=== PATIENT | male | born 1985 | race Caucasian/White ===

== ENCOUNTER 2019-01-12 20:16 | Emergency (ER) | payer SELFPAY ==
--- NOTE | 2019-01-12 20:32 | EDM.PDOC ---
ED HPI GENERAL MEDICAL PROBLEM - General Chief Complaint: Lower Extremity Injury/Pain Stated Complaint: SOB Time Seen by Provider: 01/12/19 20:31 - History of Present Illness INITIAL COMMENTS - FREE TEXT/NARRATIVE: 33-year-old male presents emergency room with right foot pain and chest wall pain area patient drops off on his right foot therefore it hurts he cannot recall how he did it. The os is having some substernal chest pain. He is not sure how he did this either denies smoking drugs or alcohol this all occurred earlier today. Right Feet Pain Score (Numeric/FACES): 10 Chest Pain Score (Numeric/FACES): 8 - Related Data Allergies Allergy/AdvReac Type Severity Reaction Status Date / Time No Known Allergies Allergy Verified 11/08/13 13:08 Home Meds: Home Meds Hydrocodone/Acetaminophen [Hydrocodone-Acetaminophen 5-325] 1 - 2 each PO Q4HR PRN #10 tablet 11/08/13 [Rx] Past Medical History - Past Health History Medical/Surgical History: Denies Medical/Surgical History Review of Systems - Review of Systems Review Of Systems: See Below Constitutional: Reports: No Symptoms Eyes: Reports: No Symptoms Ears: Reports: No Symptoms Nose: Reports: No Symptoms Mouth/Throat: Reports: No Symptoms Respiratory: Reports: No Symptoms Cardiovascular: Reports: Chest Pain GI/Abdominal: Reports: No Symptoms Skin: Reports: No Symptoms Neurological: Reports: No Symptoms Psychiatric: Reports: No Symptoms ED EXAM, GENERAL - Physical Exam Exam: See Below Exam Limited By: No Limitations General Appearance: Alert, WD/WN, No Apparent Distress Respiratory/Chest: No Respiratory Distress, Lungs Clear, Normal Breath Sounds Cardiovascular: Regular Rate, Rhythm, No Murmur, Bradycardia GI/Abdominal: Normal Bowel Sounds, Soft, Non-Tender, Other (Zain over the stomach up towards the heart) Back Exam: Normal Inspection. No: CVA Tenderness (L), CVA Tenderness (R) Extremities: Normal Inspection, No Pedal Edema, Pedal Edema EKG INTERPRETATION Rhythm: NSR [place]: RAD-Right [place] Deviation QRS: RBBB ST-T: Normal EKG Interpretation Comments: Normal PVC right bundle branch block no obvious ischemia Course - Vital Signs Text/Narrative:: His chest wall pain does not appear to be dangerous. He's tender foot for a while after dropping weight on he can use Tylenol or Motrin on this so he can go back to work Last Recorded V/S: Last Vital Signs Temp 36.7 C 01/12/19 20:24 Pulse 96 01/12/19 20:24 Resp 18 01/12/19 20:24 BP 137/87 01/12/19 20:24 Pulse Ox 100 01/12/19 20:24 - Orders/Labs/Meds Orders: Active Orders 24 hr Category Date Time Status EKG Documentation Completion [RC] STAT Care 01/12/19 20:51 Active Chest 1V Frontal [CR] Stat Exams 01/12/19 20:50 Taken Foot Comp Min 3V Rt [CR] Stat Exams 01/12/19 20:49 Taken Labs: Laboratory Tests 01/12/19 01/12/19 Range/Units 21:03 21:03 WBC 12.91 H (4.23-9.07) K/mm3 RBC 5.59 (4.63-6.08) M/mm3 Hgb 16.2 (13.7-17.5) gm/dl Hct 49.5 (40.1-51.0) % MCV 88.6 (79.0-92.2) fl MCH 29.0 (25.7-32.2) pg MCHC 32.7 (32.2-35.5) g/dl RDW Std Deviation 43.4 (35.1-43.9) fL Plt Count 280 (163-337) K/mm3 MPV 9.5 (9.4-12.3) fl Neutrophils % (Manual) 91 H (40-60) % Band Neutrophils % 0 (0-10) % Lymphocytes % (Manual) 7 L (20-40) % Atypical Lymphs % 0 % Monocytes % (Manual) 2 (2-10) % Eosinophils % (Manual) 0 L (0.8-7.0) % Basophils % (Manual) 0 L (0.2-1.2) Platelet Estimate Adequate RBC Morph Comment Normal Sodium 136 (136-145) mEq/L Potassium 4.8 (3.5-5.1) mEq/L Chloride 104 (98-107) mEq/L Carbon Dioxide 28 (21-32) mEq/L Anion Gap 8.8 (5-15) BUN 12 (7-18) mg/dL Creatinine 1.2 (0.7-1.3) mg/dL Est Cr Clr Drug Dosing TNP Estimated GFR (MDRD) > 60 (>60) mL/min BUN/Creatinine Ratio 10.0 L (14-18) Glucose 100 (74-106) mg/dL Calcium 8.3 L (8.5-10.1) mg/dL Total Bilirubin 1.5 H (0.2-1.0) mg/dL AST 26 (15-37) U/L ALT 37 (16-63) U/L Alkaline Phosphatase 77 (46-116) U/L Troponin I < 0.017 (0.00-0.056) ng/mL Total Protein 6.8 (6.4-8.2) g/dl Albumin 3.6 (3.4-5.0) g/dl Globulin 3.2 gm/dL Albumin/Globulin Ratio 1.1 (1-2) - Re-Assessments/Exams Free Text/Narrative Re-Assessment/Exam: 01/12/19 22:44 Return evaluation is unrevealing chest x-ray shows no acute cardiopulmonary changes. She'll be discharged home is recommended use Tylenol or Motrin for pain control Departure - Departure Time of Disposition: 22:46 Disposition: Home, Self-Care 01 Clinical Impression: Contusion of right foot - Discharge Information Referrals: PCP,None [Primary Care Provider] - Alberto Granger MD [Emergency Provider] - Forms: ED Department Discharge Additional Instructions: Treatment emergency room with any questions problems worsening symptoms. Follow- up in the Hospital clinic for recheck in 3 or 4 days [id number]. Tylenol and/or Motrin as needed for pain this way you can continue to work. - My Orders Last 24 Hours: My Active Orders 01/12/19 20:49 Foot Comp Min 3V Rt [CR] Stat 01/12/19 20:50 Chest 1V Frontal [CR] Stat 01/12/19 20:51 EKG Documentation Completion [RC] STAT - Assessment/Plan Last 24 Hours: My Active Orders 01/12/19 20:49 Foot Comp Min 3V Rt [CR] Stat 01/12/19 20:50 Chest 1V Frontal [CR] Stat 01/12/19 20:51 EKG Documentation Completion [RC] STAT
--- NOTE | 2019-01-13 09:39 | CR ---
Right foot: Four views of the right foot were obtained. Comparison: No previous foot exam. Joint spaces are maintained. No fracture, dislocation or other bony abnormality is seen. Impression: 1. No abnormality is identified on four-view right foot exam. Diagnostic code #1
--- NOTE | 2019-01-13 09:39 | CR ---
Chest: Portable view of the chest was obtained. Comparison: No prior chest x-ray. Heart size and mediastinum are within normal limits for portable technique. Nodular opacity is seen within the left lung base believed to be due to confluence of lung markings. Lungs otherwise are clear. Bony structures are unremarkable. Impression: 1. Nothing acute is appreciated on portable chest x-ray. Diagnostic code #1
== END 2019-01-12 22:59 | disposition home or self-care (01) ==
LOC: JD.ED 20:16
DX: S90.31XA Contusion of right foot, initial encounter (principal); W22.8XXA Striking against or struck by other objects, initial encounter
CPT/HCPCS: 36415; 71045; 71045-26; 73630-26-RT; 73630-RT; 80053; 84484; 85007; 85027; 93005; 99285-25

== ENCOUNTER 2019-10-02 10:40 | Emergency (ER) | payer BC ==
--- NOTE | 2019-10-02 11:30 | EDM.PDOCBH ---
ED HPI GENERAL MEDICAL PROBLEM - General Chief Complaint: Behavioral/Psych Stated Complaint: ANXIETY Time Seen by Provider: 10/02/19 11:05 Source of Information: Reports: Patient History Limitations: Reports: No Limitations - History of Present Illness INITIAL COMMENTS - FREE TEXT/NARRATIVE: Patient is a 34-year-old male who presents to the emergency department with complaints of intermittent anxiety/panic attacks and the request for a note for him to return to work. He states that he has been off work since Saturday for what he describes as a "gallbladder attack ". Been told in the past that he needs to have his gallbladder out, however he has not done so thus far. Symptoms of this have resolved, however his employer would not allow him to return to work without a note. With regards to his anxiety. He was seen in the clinic in April given a prescription for citalopram and Xanax, however he never picked these medications up. He states that for a while the anxiety improved, however over the last few weeks it seems to be returning. He describes feeling anxious and "panicky "about twice a week. He has been on citalopram in the past, however it is been a while. He denies any thoughts of self-harm. - Related Data Allergies Allergy/AdvReac Type Severity Reaction Status Date / Time No Known Allergies Allergy Verified 08/24/19 22:35 Home Meds: Home Meds Citalopram Hydrobromide [Celexa] 10 mg PO DAILY #30 tablet 10/02/19 [Rx] Past Medical History - Past Health History Medical/Surgical History: Denies Medical/Surgical History Gastrointestinal History: Reports: Other (See Below) Other Gastrointestinal History: Pt states he has "gallbladder issues" Psychiatric History: Reports: Anxiety Social & Family History - Family History Family Medical History: Noncontributory - Tobacco Use Smoking Status *Q: Current Every Day Smoker Years of Tobacco use: 5 Packs/Tins Daily: 0.5 - Caffeine Use Caffeine Use: Reports: Soda, Tea - Recreational Drug Use Recreational Drug Use: No ED ROS GENERAL - Review of Systems Review Of Systems: See Below Constitutional: Reports: No Symptoms HEENT: Reports: No Symptoms Respiratory: Reports: No Symptoms Cardiovascular: Reports: No Symptoms Endocrine: Reports: No Symptoms GI/Abdominal: Reports: No Symptoms : Reports: No Symptoms Musculoskeletal: Reports: No Symptoms Skin: Reports: No Symptoms Neurological: Reports: No Symptoms Psychiatric: Reports: Anxiety Hematologic/Lymphatic: Reports: No Symptoms Immunologic: Reports: No Symptoms ED EXAM, BEHAVIORAL HEALTH - Physical Exam Exam: See Below Exam Limited By: No Limitations General Appearance: Alert, WD/WN, No Apparent Distress Respiratory/Chest: No Respiratory Distress, Lungs Clear, Normal Breath Sounds, No Accessory Muscle Use, Chest Non-Tender Cardiovascular: Normal Peripheral Pulses, Regular Rate, Rhythm, No Edema, No Gallop, No JVD, No Murmur, No Rub GI/Abdominal: Normal Bowel Sounds, Soft, Non-Tender, No Organomegaly, No Distention, No Abnormal Bruit, No Mass Neurological: Alert, Normal Mood/Affect, CN II-XII Intact, Normal Cognition, Normal Gait, Normal Reflexes, No Motor/Sensory Deficits, Oriented x 3 Psychiatric: Alert, Normal Affect, Normal Cognition, Normal Mood, Oriented Skin Exam: Warm, Dry, Intact, Normal color, No rash COURSE, BEHAVIORAL HEALTH COMP - Course Vital Signs: Last Vital Signs Temp 98.1 F 10/02/19 11:00 Pulse 87 10/02/19 11:00 Resp 20 10/02/19 11:00 BP 128/89 10/02/19 11:00 Pulse Ox 98 10/02/19 11:00 Re-Assessment/Re-Exam: Patient is a 34-year-old male who presents what he describes as intermittent anxiety attacks. He has been prescribed medications in the past, however he did not pick them up. Looking back in the history, he saw Queenie Ramirez in April. She prescribed him citalopram and Xanax. Patient states that his anxiety attacks are not as bad now as they were back in April. The decision was made to just start him on the daily dose of citalopram and have him follow- up in the clinic. He is in agreement with this plan. Discharge instructions as documented. Departure - Departure Time of Disposition: 11:28 Disposition: Home, Self-Care 01 Condition: Good Clinical Impression: Anxiety - Discharge Information *PRESCRIPTION DRUG MONITORING PROGRAM REVIEWED*: No *COPY OF PRESCRIPTION DRUG MONITORING REPORT IN PATIENT AMADA: No Prescriptions: Citalopram Hydrobromide [Celexa] 10 mg PO DAILY #30 tablet Instructions: Living With Anxiety Referrals: PCP,None [Primary Care Provider] - Forms: ED Department Discharge, ED Return to Work/School Form Additional Instructions: You were seen in the emergency department today for anxiety and a note to return to work. A prescription for citalopram has been sent to clinic pharmacy. Take this medication as prescribed. Recommend that you call and schedule a follow-up appointment in the clinic for 3 weeks for ongoing management of your anxiety and for subsequent medication refills as needed. Return to the ER as needed. Sepsis Event Note - Evaluation Sepsis Screening Result: No Definite Risk - Focused Exam Vital Signs: Vital Signs Temp Pulse Resp BP Pulse Ox 10/02/19 11:00 98.1 F 87 20 128/89 98 Date Exam was Performed: 10/02/19 Time Exam was Performed: 11:34
== END 2019-10-02 11:35 | disposition home or self-care (01) ==
LOC: JD.ED 10:40
DX: F41.9 Anxiety disorder, unspecified (principal); F17.210 Nicotine dependence, cigarettes, uncomplicated; Z79.899 Other long term (current) drug therapy
CPT/HCPCS: 99282; 99283

== ENCOUNTER 2023-01-15 19:26 | Emergency (ER) | payer BC, MEDICAID | END 2023-01-15 20:26 | disposition other institution (70) | LOC: JD.ED 19:26 | DX: F19.10 Other psychoactive substance abuse, uncomplicated (principal); F17.210 Nicotine dependence, cigarettes, uncomplicated | CPT/HCPCS: 99282; 99283 ==